=== PATIENT | male | born 1980 | race Caucasian/White ===

== ENCOUNTER 2019-03-19 21:42 | Emergency (ER) | payer OTHER ==
[~2019-03-19] VITALS: Ht 185.4 cm; Wt 111.1 kg
[~2019-03-19 21:42] MED LIST: [UNRECOGNIZED DRUG - OTHER] PO; divalproex PO; multi vitamin PO; naproxen PO; sumatriptan PO
--- NOTE | 2019-03-19 22:44 | NUR ---
pt to ed from home w/ per surgeon. R meniscus sx 03/16. c/o achey crampy calf pain 3/10 worse when walking. DP 2+ bilat. skin warm and dry. very trace edema to R leg. no redness/warmth noted. denies cp/sob. zi in room for eval. plan for us. as
--- NOTE | 2019-03-19 23:29 | NUR ---
resting on bed in care of . vss. awaitnig us. NAD. call orozco in reach. as
--- NOTE | 2019-03-19 23:59 | NUR ---
Report received from TAMMY Berrios. This RN to assume care.
--- NOTE | 2019-03-19 23:59 | NUR ---
REPORT TO RADHA MUNOZ.
--- NOTE | 2019-03-20 00:12 | NUR ---
Patient in [place].
[2019-03-20 01:20] VITALS: BP 133/77
--- NOTE | 2019-03-20 01:27 | NUR ---
Patient discharge instructions given. All questions and concerns addressed. Patient ambulatory with a steady gait. Belongings with patient.
== END 2019-03-20 01:29 | disposition home or self-care (01) ==
LOC: ED 23:10
DX: M79.661 Pain in right lower leg (principal)
CPT/HCPCS: 99284